=== PATIENT | male | born 1965 | race Caucasian/White ===

== ENCOUNTER → 2018-12-09 | Outpatient (CLI) | payer OTHER ==
[~2018-12-09] MED LIST: AMLO10TA5 PO; CARV25TA PO; ESOM1CAP5 PO; FISH1000 PO; HYZA100T6 PO; LIPI20TA PO
--- NOTE | 2018-12-09 12:19 | REP ---
Lumbar spine five views: There are no comparisons. Vertebral body heights and alignment are normal. There is disc space narrowing and degenerative disc disease at every lumbar level. There are Schmorl's nodes in the superior inferior endplates of L1. There are large Schmorl's nodes in the superior inferior endplate of T 12. There is no spondylolysis or spondylolisthesis. The pedicles and facets are unremarkable. Sacroiliac articulations are unremarkable. Impression: Multilevel degenerative disc disease. Schmorl's nodes as described. Electronically Signed by Jem Robbins MD 12/09/2018 12:10 P
== END ==
LOC: M WUC 11:47
PROVIDERS: ATTEND Physician Assistant
DX: M51.36 Other intervertebral disc degeneration, lumbar region (principal); M51.46 Schmorl's nodes, lumbar region

== ENCOUNTER → 2021-05-27 | Outpatient (REF) | payer OTHER ==
[~2021-05-27] MED LIST changes: -AMLO10TA5 PO; +AMLO1TAB25 PO
== END ==
LOC: M WUC 11:46
PROVIDERS: ATTEND Physician Assistant
DX: J02.9 Acute pharyngitis, unspecified (principal)

== ENCOUNTER 2021-12-16 09:55 | Day surgery (SDC) | payer OTHER ==
[~2021-12-16] VITALS: Ht 175.3 cm; Wt 77.1 kg
[~2021-12-16 09:55] MED LIST changes: +HYDR-3490; +NS 1,000 ML IV ONE
[2021-12-16] MEDS ORDERED: propofoL 200 MG/20 ML VIAL As Ordered ONE ×2 (12:19→12:26)
[2021-12-16] MEDS ORDERED: LIDOCAINE 2% 100MG/5ML SDV (FOR ANES.) As Ordered ONE (12:19)
[2021-12-16 13:00] VITALS: BP 140/79
== END 2021-12-16 13:15 | disposition home or self-care (01) ==
LOC: M OPP 09:55
PROVIDERS: ATTEND Internal Medicine Gastroenterology
DX: Z12.11 Encounter for screening for malignant neoplasm of colon (principal); Z83.71 Family history of colonic polyps; R12 Heartburn; D12.0 Benign neoplasm of cecum; D13.0 Benign neoplasm of esophagus; K64.0 First degree hemorrhoids; K57.30 Diverticulosis of large intestine without perforation or abscess without bleeding; K44.9 Diaphragmatic hernia without obstruction or gangrene

== ENCOUNTER → 2023-08-08 | Outpatient (CLI) | payer OTHER ==
[~2023-08-08] MED LIST changes: -HYZA100T6 PO; +LOSA-536 PO; -NS 1,000 ML IV ONE
== END ==
LOC: M CARPUL 08:48
PROVIDERS: ATTEND Family Medicine
DX: R01.1 Cardiac murmur, unspecified (principal); I70.0 Atherosclerosis of aorta